=== PATIENT | male | born 1955 | race Hispanic/Latino ===

== ENCOUNTER → 2020-07-05 | Outpatient (CLI) | payer OTHER ==
[~2020-07-05] MED LIST: ALBU6.7H9 IH; ASPI-1005 PO; BRIM10DR14 OU; DILT300C53 PO; DORZ10DR9 OU; GEMF600T89 PO; LATA2.5D14 OU; LEVO25TA54 PO; LISI1TAB32 PO; METF-444 PO; MULT-660 PO; OMEP20TA25 PO; PRAV40TA3 PO; SYMB8060 IH
== END | disposition home or self-care (01) ==
LOC: RAH 09:55
PROVIDERS: ATTEND Internal Medicine Cardiovascular Disease
DX: I10 Essential (primary) hypertension (principal)
CPT/HCPCS: 93306; 93356

== ENCOUNTER 2023-08-28 08:44 | Day surgery (SDC) | payer OTHER ==
[2023-08-26 09:58] LABS: BASOPHILS # (AUTO) 0.04 K/uL (0.00-0.20); BASOPHILS % (AUTO) 0.7 % (0.0-5.0); HEMATOCRIT 42.4 % (42-54); IMMATURE GRANULOCYTE ABSOLUTE 0.02 K/uL (0-1); LYMPHOCYTES # (AUTO) 1.2 K/uL (1.0-4.8); LYMPHOCYTES % (AUTO) 20.7 % (21.0-51.0); MEAN CORPUSCULAR HEMOGLOBIN 30.6 pg (27.0-33.0); MEAN CORPUSCULAR VOLUME 90.2 fL (79-99); MONOCYTES # (AUTO) 0.4 K/uL (0.1-1.0); NEUTROPHILS % (AUTO) 66.3 % (40.0-77.0); PLATELET COUNT (AUTO) 259 K/uL (130-400); RED CELL DISTRIBUTION WIDTH 12.8 % (11.0-15.5)
[2023-08-26 10:10] LABS: APPEARANCE,URINE CLEAR (CLEAR); BILIRUBIN,URINE NEGATIVE (NEGATIVE); COLOR,URINE LIGHT-YELLOW (YELLOW); GLUCOSE, URINE (UA) >=1000 mg/dL (NEGATIVE); KETONES,URINE NEGATIVE (NEGATIVE); LEUKOCYTE ESTERASE ,URINE NEGATIVE Leu/uL (NEGATIVE); NITRATE,URINE NEGATIVE (NEGATIVE); OCCULT BLOOD,URINE NEGATIVE (NEGATIVE); PH,URINE 6.5 (5.0-8.0); PROTEIN,URINE NEGATIVE (NEGATIVE); UROBILINOGEN,URINE 0.2 mg/dL (0.2-1.0)
[2023-08-26 10:11] LABS: CREATININE 1.4 mg/dL (0.5-1.3)
[2023-08-26 10:12] LABS: ADD UA MICROSCOPIC YES
[2023-08-26 10:18] LABS: B-TYPE NATRIURETIC PEPTIDE 6 pg/mL (0-100)
[2023-08-26 10:20] LABS: RBC,URINE 0-1 /HPF (0-1); SQUAMOUS EPITHELIAL CELL,UR RARE /HPF (0-2)
[2023-08-26 10:21] LABS: INR 1.01 (0.85-1.15); PARTIAL THROMBOPLASTIN TIME 24.5 SEC (26.3-35.5); PROTHROMBIN TIME 10.7 SEC (9.6-11.6)
[2023-08-26 10:38] VITALS: BP 118/66; PULSE 60; RESP 17
[~2023-08-28] VITALS: Ht 167.6 cm; Wt 60.2 kg
[2023-08-28] VITALS (7 sets, daily range): BP systolic 117–148; BP diastolic 45–73; PULSE 56–63; RESP 18
[~2023-08-28 08:44] MED LIST changes: +AEC81 PO; -ALBU6.7H9 IH; +AMIL5TAB8 PO; +AMLO-257 PO; -ASPI-1005 PO; +CARB1TAB35 PO; +CELE100 PO; +CHLO25TA3 PO; +CYAN-106 PO; -DILT300C53 PO; -DORZ10DR9 OU; +EMPA25TA PO; +FENO145T26 PO; +FLUT1BLS8 IH; -GEMF600T89 PO; +LEVO137C4 PO; -LEVO25TA54 PO; -LISI1TAB32 PO; +MAGN400T53 PO; -METF-444 PO; +MONT-39 PO; -MULT-660 PO; -OMEP20TA25 PO; -PRAV40TA3 PO; +ROSU40TA70 PO; +SEMA1PEN3 SQ; -SYMB8060 IH; +pindolol PO
[2023-08-28] MEDS: 0.9%NACL 1000ML 1,000 ML IV ONE (09:58)
[2023-08-28] MEDS ORDERED: LIDOCAINE HCL 400MG/20ML VIAL ONE (10:12)
[2023-08-28] MEDS ORDERED: IOHEXOL 350 MG/ML 100ML INFUS..BTL IV ONE (10:13)
[2023-08-28] MEDS ORDERED: IODIXANOL 320 MG/ML 100 ML VIAL ONE ×2 (10:15)
[2023-08-28] MEDS ORDERED: MIDAZOLAM HCL 1 MG/ML 2ML VIAL ONE (10:16)
[2023-08-28] MEDS ORDERED: FENTANYL CITRATE PF 50 MCG/1 ML 2ML VIAL ONE (10:16)
[2023-08-28] MEDS ORDERED: HEPARIN 10,000 UNIT/10ML (1,000 UNIT/ML) VIAL ONE (10:22)
[2023-08-28] MEDS: 0.9% NACL 500ML IV.SOLN 500 ML IV SCH (13:28)
== END 2023-08-28 13:49 | disposition home or self-care (01) ==
LOC: DAH 08:44
PROVIDERS: ATTEND Internal Medicine Cardiovascular Disease
DX: I70.1 Atherosclerosis of renal artery (principal); I11.0 Hypertensive heart disease with heart failure; I50.9 Heart failure, unspecified; E78.2 Mixed hyperlipidemia; E03.9 Hypothyroidism, unspecified; E11.9 Type 2 diabetes mellitus without complications; J45.909 Unspecified asthma, uncomplicated; Z79.01 Long term (current) use of anticoagulants; Z79.899 Other long term (current) drug therapy
CPT/HCPCS: 80048; 83880; 85025; 85610; 85730; 81001; 36415; 71045; 93005; 36252; 82948 ×2; C1894 ×2; C1887 ×2; C1760; J3010; J3490; J7030; J2250; J1644; Q9967; A4215; A4222; A4221; A4663; A4216; A4606; A4223 ×3; 96360; 96361; 99156; 99157

== ENCOUNTER → 2023-12-04 | Outpatient (CLI) | payer OTHER ==
[~2023-12-04] MED LIST changes: -ROSU40TA70 PO; +ROSU40TA88 PO
[2023-12-04 12:44] LABS: ALBUMIN 4.1 g/dL (3.5-5.0); BILIRUBIN,TOTAL 0.5 mg/dL (0.2-1.0); CREATININE 1.2 mg/dL (0.5-1.3); TOTAL PROTEIN, SERUM 7.3 g/dL (6.0-8.3)
== END | disposition home or self-care (01) ==
LOC: LAB 08:56
PROVIDERS: ATTEND Internal Medicine Cardiovascular Disease
DX: I10 Essential (primary) hypertension (principal); I42.2 Other hypertrophic cardiomyopathy
CPT/HCPCS: 36415; 80053; 80061

== ENCOUNTER → 2024-04-07 | Outpatient (CLI) | payer OTHER ==
[2024-04-07 12:40] LABS: BILIRUBIN,TOTAL 0.4 mg/dL (0.2-1.0); POTASSIUM 4.4 mmol/L (3.5-5.1); TOTAL PROTEIN, SERUM 7.1 g/dL (6.0-8.3)
== END | disposition home or self-care (01) ==
LOC: LAB 08:52
PROVIDERS: ATTEND Internal Medicine Cardiovascular Disease
DX: I25.119 Atherosclerotic heart disease of native coronary artery with unspecified angina pectoris (principal); E78.2 Mixed hyperlipidemia
CPT/HCPCS: 36415; 80053; 80061; 82306